=== PATIENT | female | born 1965 | race Caucasian/White ===

== ENCOUNTER 2019-01-13 06:48 | Emergency (ER) | payer MEDICAID ==
[~2019-01-13] VITALS: Ht 175.3 cm; Wt 138.3 kg
[2019-01-13 07:02] VITALS: Ht 175.3 cm; Wt 138.3 kg
[2019-01-13 07:40] LABS: BASOPHIL % 0.7 % (0-2); PLATELET COUNT 212 x10^3mcL (130-400); RED CELL DISTRIBUTION WIDTH 12.7 % (11.5-14.5)
[2019-01-13 07:45] LABS: microscopic required? NO
[2019-01-13 07:56] LABS: CARBON DIOXIDE 26.8 mmol/L (21-32); CHLORIDE SERUM 106 mmol/L (98-107); CREATININE SERUM 0.9 mg/dL (0.6-1.0); GFR1 > 60 mL/min; GLUCOSE SERUM 109 mg/dL (74-106); POTASSIUM SERUM 3.9 mmol/L (3.5-5.1); SODIUM SERUM 142 mmol/L (136-145)
[2019-01-13 08:08] LABS: ALBUMIN 3.5 g/dL (3.4-5.0); ALKALINE PHOSPHATASE 93 U/L (46-116); ALT/SGPT 28 U/L (14-59); AST/SGOT 23 U/L (15-37); BILIRUBIN TOTAL 0.43 mg/dL (0.20-1.00); CHOLESTEROL 170 mg/dL (<200); CHOLESTEROL/HDL RATIO 3.2; HDL CHOLESTEROL 53 mg/dL (40-60); LIPASE 173 IU/L (73-393); TOTAL PROTEIN, SERUM 6.8 g/dL (6.4-8.2); TRIGLYCERIDES 73 mg/dL (<150)
[2019-01-13 08:09] LABS: T3 TOTAL 1.55 ng/mL
[2019-01-13 08:20] LABS: UA SPECIFIC GRAVITY 1.015 (1.005-1.035); urine erythrocyte NEGATIVE (NEGATIVE)
[2019-01-13 08:25] LABS: FREE T4 1.02 ng/dL (0.76-1.46); FREE THYROXINE INDEX 3.2 ug/dL (1.4-4.5); T4(THYROXINE) 9.5 ug/dL (4.7-13.3)
[2019-01-13 09:56] VITALS: BP 143/67
== END 2019-01-13 09:56 | disposition home or self-care (01) ==
LOC: ED 06:48
PROVIDERS: Specialist
DX: M79.622 Pain in left upper arm (principal); M79.621 Pain in right upper arm; I10 Essential (primary) hypertension; Z90.710 Acquired absence of both cervix and uterus
CPT/HCPCS: 36415; 83880; 84439; J1885; Q0092

== ENCOUNTER 2019-02-22 12:05 | Emergency (ER) | payer OTHER ==
[~2019-02-22] VITALS: Ht 175.3 cm; Wt 137.4 kg
[2019-02-22 12:47] VITALS: BP 138/66; Ht 175.3 cm; Wt 137.4 kg
[2019-02-22 14:51] LABS: CALCIUM 9.2 mg/dL (8.5-10.1); CARBON DIOXIDE 26.6 mmol/L (21-32); CHLORIDE SERUM 106 mmol/L (98-107); GFR1 > 60 mL/min; GLUCOSE SERUM 82 mg/dL (74-106); SODIUM SERUM 142 mmol/L (136-145)
[2019-02-22 14:53] LABS: ALBUMIN 4.2 g/dL (3.4-5.0); ALKALINE PHOSPHATASE 108 U/L (46-116); ALT/SGPT 28 U/L (14-59); AST/SGOT 17 U/L (15-37); BILIRUBIN TOTAL 0.36 mg/dL (0.20-1.00); MAGNESIUM 2.3 mg/dL (1.8-2.4); TOTAL PROTEIN, SERUM 8.2 g/dL (6.4-8.2)
[2019-02-22 14:55] LABS: BASOPHIL % 0.8 % (0-2); PLATELET COUNT 224 x10^3mcL (130-400)
[2019-02-22 16:01] LABS: UA SPECIFIC GRAVITY >=1.030 (1.005-1.035); microscopic required? YES; urine erythrocyte NEGATIVE (NEGATIVE)
== END 2019-02-22 16:51 | disposition home or self-care (01) ==
LOC: ED 12:05
PROVIDERS: Emergency Medicine
DX: N39.0 Urinary tract infection, site not specified (principal); M54.9 Dorsalgia, unspecified; I10 Essential (primary) hypertension; Z90.710 Acquired absence of both cervix and uterus; Z98.890 Other specified postprocedural states
CPT/HCPCS: 36415

== ENCOUNTER 2019-03-05 11:07 | Emergency (ER) | payer OTHER ==
[~2019-03-05] VITALS: Ht 175.3 cm; Wt 136.1 kg
[2019-03-05 11:13] VITALS: Ht 175.3 cm; Wt 136.1 kg
[2019-03-05 11:28] VITALS: BP 159/70
== END 2019-03-05 12:42 | disposition home or self-care (01) ==
LOC: ED 11:07
DX: R51 Headache (principal); R42 Dizziness and giddiness; I10 Essential (primary) hypertension; Z98.890 Other specified postprocedural states; Z90.710 Acquired absence of both cervix and uterus
CPT/HCPCS: J1885

== ENCOUNTER 2019-12-28 21:43 | Emergency (ER) | payer OTHER | END 2019-12-28 22:10 | disposition left against medical advice (07) | LOC: ED 21:43 | DX: Z53.21 Procedure and treatment not carried out due to patient leaving prior to being seen by health care provider (principal) ==

== ENCOUNTER 2020-03-22 08:44 | Emergency (ER) | payer OTHER, SELFPAY ==
[~2020-03-22] VITALS: Ht 175.3 cm; Wt 136.1 kg
[2020-03-22 08:45] VITALS: BP 150/82; Ht 175.3 cm; Wt 136.1 kg
== END 2020-03-22 09:48 | disposition home or self-care (01) ==
LOC: ED 08:44
DX: M79.10 Myalgia, unspecified site (principal); I10 Essential (primary) hypertension; Z20.828 Contact with and (suspected) exposure to other viral communicable diseases; Z90.710 Acquired absence of both cervix and uterus; Z98.890 Other specified postprocedural states
CPT/HCPCS: U0003